=== PATIENT | male | born 1950 | race Caucasian/White ===

== ENCOUNTER 2023-07-30 03:56 | Emergency (ER) | payer OTHER ==
[~2023-07-30] VITALS: Ht 177.8 cm; Wt 92.0 kg
[2023-07-30] MEDS ORDERED: METFORMIN HCL1000 MG PO (04:32)
[2023-07-30] MEDS ORDERED: GLIPIZIDE10 M3 PO (04:34)
[2023-07-30] MEDS ORDERED: ALTACE10 MG PO (04:34)
[2023-07-30] MEDS ORDERED: CRESTOR10 MG PO (04:35)
[2023-07-30] MEDS ORDERED: RABEPRAZOLE SOD20 MG PO (04:35)
[2023-07-30] MEDS ORDERED: PROCARDIA XL30 MG PO (04:36)
[2023-07-30] MEDS ORDERED: BISOPROL FUM5 MG PO (04:36)
[2023-07-30] MEDS ORDERED: ZOLOFT25 MG PO (04:37)
[2023-07-30] MEDS ORDERED: LANTUS100 UNIT SC (04:37)
[2023-07-30] MEDS ORDERED: BAYER ASPIRIN E81 MG PO (04:37)
[2023-07-30] MEDS ORDERED: STERAPRED DS10 MG PO (05:06)
[2023-07-30 05:11] VITALS: BP 129/83
== END 2023-07-30 05:11 | disposition home or self-care (01) | DRG 554 ==
LOC: ED 03:56
DX: M10.022 Idiopathic gout, left elbow (principal); I10 Essential (primary) hypertension; E11.9 Type 2 diabetes mellitus without complications; F17.210 Nicotine dependence, cigarettes, uncomplicated; Z79.84 Long term (current) use of oral hypoglycemic drugs; Z79.4 Long term (current) use of insulin